=== PATIENT | male | born 1985 | race Two or more races ===

== ENCOUNTER 2022-09-12 23:19 | Emergency (ER) | payer OTHER ==
[~2022-09-12] VITALS: Ht 185.4 cm; Wt 127.0 kg
[2022-09-13 00:08] LABS: Basophils # (auto) 0.1 10 ^3/uL (0-0.2); Basophils % (auto) 0.7 % (0.0-2.0); Eosinophils # (auto) 0.1 10 ^3/uL (0-0.8); Eosinophils % (auto) 1.2 % (0.0-7.0); Hematocrit 47.1 % (41.0-53.0); Hemoglobin 15.8 g/dL (13.5-17.5); Lymphocytes % (auto) 18.6 % (10.0-50.0); Mean Corpuscular Hemoglobin 29.9 pg (28.0-32.0); Mean Corpuscular Hgb Conc. 33.6 g/dL (32.0-36.0); Mean Corpuscular Volume 88.9 fL (80.0-100.0); Monocytes # (auto) 0.7 10 ^3/uL (0-1.3); Monocytes % (auto) 6.2 % (0.0-12.0); Neutrophils # (auto) 8.1 10 ^3/uL (1.6-8.6); Neutrophils % (auto) 73.3 % (37.0-80.0); Red Cell Distribution Width 13.2 % (11.8-14.3)
[2022-09-13 00:15] LABS: INR 0.99 (0.9-1.15); Partial Thromboplastin Time 29.6 sec (24.6-33.4)
[2022-09-13 00:20] LABS: BUN/Creatinine Ratio 19.4; Calcium 8.7 mg/dL (8.5-10.1); Potassium 4.1 mmol/L (3.5-5.1)
[2022-09-13 00:22] LABS: Bilirubin, Total 0.6 mg/dL (0.2-1.0); Total Protein 7.3 g/dL (6.4-8.2)
[2022-09-13 03:23] VITALS: BP 143/95
[2022-09-13] MEDS ORDERED: HYDROcodone-ACET 5/325MG TAB PO ONE (04:30)
== END 2022-09-13 04:22 | disposition home or self-care (01) ==
LOC: ER 23:19
DX: R07.89 Other chest pain (principal); E87.8 Other disorders of electrolyte and fluid balance, not elsewhere classified; E86.0 Dehydration; R79.89 Other specified abnormal findings of blood chemistry; E78.5 Hyperlipidemia, unspecified
CPT/HCPCS: 36415; 71045; 80053; 83880; 84484; 85025; 85610; 85730; 93005